=== PATIENT | female | born 1980 | race Two or more races ===

== ENCOUNTER → 2016-08-28 | Outpatient (REF) | payer OTHER ==
[2016-08-28 13:58] LABS: MEAN CORPUSCULAR HEMOGLOBIN 30.4 pg (27.0-33.0); MEAN CORPUSCULAR HGB CONC 34.5 g/dl (32.0-36.5); MEAN CORPUSCULAR VOLUME 88.2 fl (80.0-96.0); RED CELL DISTRIBUTION WIDTH 13.1 % (11.5-14.5); WHITE BLOOD COUNT 5.6 K/mm3 (4.0-10.0)
[2016-08-28 14:11] LABS: LUTEINIZING HORMONE 7.3 mIU/mL
[2016-08-28 14:12] LABS: FOLLICLE STIMULATING HORMONE 3.6 mIU/mL
[2016-08-28 14:14] LABS: ALBUMIN 4.2 GM/DL (3.2-5.2); ALBUMIN/GLOBULIN RATIO 1.35 (1.00-1.93); ALKALINE PHOSPHATASE 66 U/L (45-117); ALT/SGPT 19 U/L (12-78); ANION GAP 10 MEQ/L (8-16); AST/SGOT 16 U/L (15-37); BILIRUBIN,TOTAL 0.4 MG/DL (0.2-1.0); BLOOD UREA NITROGEN 8 MG/DL (7-18); CALCIUM LEVEL 9.3 MG/DL (8.5-10.1); CARBON DIOXIDE LEVEL 26 MEQ/L (21-32); CHLORIDE LEVEL 105 MEQ/L (98-107); CREATININE FOR GFR 0.73 MG/DL (0.55-1.02); FREE T4 1.69 NG/DL (0.76-1.46); GLOMERULAR FILTRATION RATE > 60.0 (>60); GLUCOSE, FASTING 85 MG/DL (70-105); POTASSIUM SERUM 4.3 MEQ/L (3.5-5.1); SODIUM LEVEL 141 MEQ/L (136-145); TOTAL PROTEIN 7.3 GM/DL (6.4-8.2)
== END ==
LOC: M SFHCPLAZ 10:53
PROVIDERS: ATTEND Nurse Practitioner Family
DX: J45.909 Unspecified asthma, uncomplicated (principal); E28.2 Polycystic ovarian syndrome

== ENCOUNTER → 2016-10-03 | Outpatient (CLI) | payer OTHER ==
--- NOTE | 2016-10-03 13:59 | REP ---
THYROID ULTRASOUND: Real-time sonographic evaluation of the thyroid is performed. Both lobes are normal in size and echotexture, right lobe measuring 4.9 x 1.4 x 1.9 cm and the left lobe 4.9 x 1.3 x 1.9 cm. There is no cystic or solid nodule bilaterally. IMPRESSION: Normal appearing thyroid. Signed by Wilmer Hui MD 10/03/2016 05:39 P
== END ==
LOC: M RAD 12:34
PROVIDERS: ATTEND Nurse Practitioner Family
DX: R79.9 Abnormal finding of blood chemistry, unspecified (principal)

== ENCOUNTER → 2016-10-15 | Outpatient (REF) | payer OTHER ==
[2016-10-15 18:51] LABS: T UPTAKE 32 % (30-39); THYROXINE (T4) 9.4 UG/DL (4.5-12.0)
[2016-10-15 18:59] LABS: THYROID PEROXIDASE ANTIBODY < 28.0 U/ML (<60.0)
== END ==
LOC: M SFHCPLAZ 15:06
PROVIDERS: ATTEND Nurse Practitioner Family
DX: R79.9 Abnormal finding of blood chemistry, unspecified (principal)

== ENCOUNTER → 2017-02-26 | Outpatient (REF) | payer OTHER ==
[2017-02-26 11:03] LABS: EOS # 0.4 K/mm3 (0.0-0.50); EOS % 9.5 % (0.0-3.0); LARGE UNSTAINED CELL # 0.1 K/mm3 (0.0-0.4); LARGE UNSTAINED CELL % 1.2 % (0.0-4.0); LYMPH # 1.6 K/mm3 (1.5-4.5); LYMPH % 33.4 % (24.0-44.0); MEAN CORPUSCULAR HEMOGLOBIN 30.2 pg (27.0-33.0); MEAN CORPUSCULAR HGB CONC 34.7 g/dl (32.0-36.5); MEAN CORPUSCULAR VOLUME 87.1 fl (80.0-96.0); MONO # 0.2 K/mm3 (0.0-0.8); MONO % 4.9 % (0.0-5.0); NEUTROPHILS # 2.3 K/mm3 (1.8-7.7); PLATELET COUNT, AUTOMATED 269 k/mm3 (150-450); RED CELL DISTRIBUTION WIDTH 13.1 % (11.5-14.5); WHITE BLOOD COUNT 4.6 K/mm3 (4.0-10.0)
[2017-02-26 11:21] LABS: FREE T4 1.42 NG/DL (0.76-1.46)
== END ==
LOC: M SFHCPLAZ 08:27
PROVIDERS: ATTEND Nurse Practitioner Family
DX: J45.909 Unspecified asthma, uncomplicated (principal); F41.0 Panic disorder [episodic paroxysmal anxiety]; F43.10 Post-traumatic stress disorder, unspecified; R68.3 Clubbing of fingers; E28.2 Polycystic ovarian syndrome

== ENCOUNTER → 2017-04-05 | Outpatient (CLI) | payer OTHER ==
[~2017-04-05] MED LIST: GASTROGRAFIN SOLUTION 30ML (Q9963) As Ordered ONE; ISOVUE-370 76% 100ML VIAL (Q9967) As Ordered ONE
--- NOTE | 2017-04-05 12:30 | REP ---
CT of the abdomen pelvis with IV and oral contrast: Comparison is the pelvic ultrasound dated 04/03/2017. The visualized lung granda are unremarkable. There is an enhancing 3.8 cm lesion in the right lobe of the liver. I would recommend MRI follow-up to evaluate for hepatic mass. The liver is otherwise unremarkable. The gallbladder, pancreas and spleen are normal size and unremarkable. The adrenals and kidneys are unremarkable. There are no renal calculi. There is no hydronephrosis. The abdominal aorta is unremarkable. There is no bowel distension. The mesentery is unremarkable. Pelvis: The appendix has a normal appearance. There is no ascites or adenopathy. The bladder, uterus and adnexa are unremarkable. The pelvic bowel loops are unremarkable. Impression: There is a 3.8 centimeter enhancing lesion in the right lobe of the liver. I would recommend MRI follow-up to evaluate for an hepatic mass. Otherwise negative CT of the abdomen and pelvis. There is no CT evidence of appendicitis. Signed by Wilmer Wylie MD 04/05/2017 12:22 P
== END ==
LOC: M RAD 10:27
PROVIDERS: ATTEND Nurse Practitioner Family
DX: R10.31 Right lower quadrant pain (principal); K76.89 Other specified diseases of liver
CPT/HCPCS: 74177; Q9963; Q9967

== ENCOUNTER → 2017-04-05 | Outpatient (REF) | payer OTHER ==
[2017-04-05 12:35] LABS: BASO % 0.6 % (0.0-1.0); EOS # 0.4 10^3/uL (0.0-0.50); EOS % 8.5 % (0.0-3.0); IMMATURE GRANULOCYTE % 0.4 % (0-0); LYMPH # 1.4 10^3/uL (1.5-4.5); LYMPH % 30.3 % (24.0-44.0); MEAN CORPUSCULAR HEMOGLOBIN 29.7 pg (27.0-33.0); MEAN CORPUSCULAR HGB CONC 33.2 g/dl (32.0-36.5); MEAN CORPUSCULAR VOLUME 89.5 fl (80.0-96.0); MONO # 0.3 10^3/uL (0.0-0.8); MONO % 7.3 % (0.0-5.0); NEUTROPHILS # 2.5 10^3/uL (1.8-7.7); NEUTROPHILS % 52.9 % (36.0-66.0); PLATELET COUNT, AUTOMATED 251 10^3/uL (150-450); RED CELL DISTRIBUTION WIDTH 13.2 % (11.5-14.5); WHITE BLOOD COUNT 4.7 10^3/uL (4.0-10.0)
[2017-04-05 13:05] LABS: ALBUMIN/GLOBULIN RATIO 1.33 (1.00-1.93); ALKALINE PHOSPHATASE 59 U/L (45-117); ALT/SGPT 21 U/L (12-78); ANION GAP 8 MEQ/L (8-16); AST/SGOT 13 U/L (15-37); BILIRUBIN,TOTAL 0.2 MG/DL (0.2-1.0); BLOOD UREA NITROGEN 16 MG/DL (7-18); CALCIUM LEVEL 8.8 MG/DL (8.5-10.1); CARBON DIOXIDE LEVEL 27 MEQ/L (21-32); CHLORIDE LEVEL 104 MEQ/L (98-107); CREATININE FOR GFR 0.71 MG/DL (0.55-1.02); GLOMERULAR FILTRATION RATE > 60.0 (>60); GLUCOSE, FASTING 83 MG/DL (70-105); POTASSIUM SERUM 4.3 MEQ/L (3.5-5.1); SODIUM LEVEL 139 MEQ/L (136-145)
== END ==
LOC: M SFHCPLAZ 09:03
PROVIDERS: ATTEND Nurse Practitioner Family
DX: R10.31 Right lower quadrant pain (principal)

== ENCOUNTER → 2017-04-12 | Outpatient (CLI) | payer OTHER ==
--- NOTE | 2017-04-12 13:28 | REP ---
MRI abdomen and liver without and with IV gadolinium: History: 3.8 cm enhancing right lobe hepatic lesion seen on CT study April 05, 2017. Right lower quadrant pain. Gadolinium enhancement dose: 14 ml of intravenous ProHance. Technique: Axial and coronal T1 and T2-weighted scans were obtained with sequences including true phase, spin echo, in and out of phase, and 2-D gradient echo dynamically acquired post gadolinium enhanced images. Findings: The known lesion in the right lobe of the liver is seen by MRI. It is only subtly hyperintense on coronal true FISP T2-weighted scans. It is essentially isointense on other T2-weighted sequences. A subtle pattern of hypointense signal is seen on T1-weighted sequences. In- and out of phase images show no suggestion of intralesional fat. No other hepatic lesion is seen. On dynamically acquired post gadolinium enhanced images, the lesion enhances conspicuously on the arterial phase images. Its margins are slightly lobular. It does not appear encapsulated. It measures 3.5 cm in greatest diameter. It quickly washes out and is barely perceptible by 3 minutes post contrast. There is no evidence of central scar. There are nonenhancing internal septations within it. No other abnormal enhancement is seen. No splenic, adrenal or renal lesion is seen. The gallbladder and pancreas are unremarkable. No upper abdominal adenopathy is seen. There is no evidence of ascitic fluid. Impression: Solitary 3.5 cm anterior segment right lobe hepatic hypervascular lesion demonstrating washout. The lesion is felt to be most compatible with hepatic adenoma. If follow-up is desired, comparison MRI study is suggested in 6-12 months. Signed by Sarabjit Sharma MD 04/12/2017 03:14 P
== END ==
LOC: M PLARAD 08:40
PROVIDERS: ATTEND Nurse Practitioner Family
DX: R10.31 Right lower quadrant pain (principal); K76.89 Other specified diseases of liver
CPT/HCPCS: 74183; A9576

== ENCOUNTER → 2018-04-16 | Outpatient (CLI) | payer MEDICAID | LOC: M WUC 13:59 | DX: R05 Cough (principal) | CPT/HCPCS: 71046 ==

== ENCOUNTER 2018-07-06 14:51 | Emergency (ER) | payer OTHER ==
[~2018-07-06] VITALS: Ht 154.9 cm; Wt 75.0 kg
[2018-07-06] MEDS ORDERED: ACETAMINOPHEN TAB 650MG DOSE (2X325MG) PO ONE (15:30)
[2018-07-06 15:31] LABS: BASO % 0.5 % (0.0-1.0); EOS # 0.2 10^3/uL (0.0-0.50); HEMATOCRIT 40.5 % (36.0-47.0); HEMOGLOBIN 13.9 g/dl (12.0-15.5); LYMPH # 2.1 10^3/uL (1.5-4.5); LYMPH % 34.2 % (24.0-44.0); MEAN CORPUSCULAR HEMOGLOBIN 30.1 pg (27.0-33.0); MEAN CORPUSCULAR HGB CONC 34.3 g/dl (32.0-36.5); MEAN CORPUSCULAR VOLUME 87.7 fl (80.0-96.0); MONO # 0.3 10^3/uL (0.0-0.8); MONO % 5.5 % (0.0-5.0); NEUTROPHILS # 3.4 10^3/uL (1.8-7.7); NEUTROPHILS % 56.5 % (36.0-66.0); PLATELET COUNT, AUTOMATED 307 10^3/uL (150-450); RED BLOOD COUNT 4.62 10^6/uL (4.00-5.40)
[2018-07-06 15:38] LABS: INR 0.9; PROTHROMBIN TIME 12.3 SECONDS (12.1-14.4)
[2018-07-06 15:39] LABS: PARTIAL THROMBOPLASTIN TIME 25.8 SECONDS (25.4-37.6)
[2018-07-06 15:46] LABS: ALBUMIN 4.3 GM/DL (3.2-5.2); ALT/SGPT 20 U/L (12-78); AMYLASE 45 U/L (25-115); BILIRUBIN,DIRECT 0.1 MG/DL (0.0-0.2); BILIRUBIN,TOTAL 0.4 MG/DL (0.2-1.0); BLOOD UREA NITROGEN 9 MG/DL (7-18); CALCIUM LEVEL 9.5 MG/DL (8.5-10.1); CARBON DIOXIDE LEVEL 23 MEQ/L (21-32); CHLORIDE LEVEL 105 MEQ/L (98-107); CPK CREATINE PHOSPHOKINASE 132 U/L (26-192); CREATININE FOR GFR 0.86 MG/DL (0.55-1.30); ETHYL ALCOHOL (ETHANOL) < 0.003 % (0.000-0.010); GLOMERULAR FILTRATION RATE > 60.0 (>60); GLUCOSE, FASTING 94 MG/DL (70-100); LIPASE 81 U/L (73-393); MB/CK RELATIVE INDEX 0.98 (< OR =4); POTASSIUM SERUM 3.8 MEQ/L (3.5-5.1); SODIUM LEVEL 139 MEQ/L (136-145); TOTAL PROTEIN 7.5 GM/DL (6.4-8.2); TROPONIN I < 0.02 NG/ML (< 0.10)
[2018-07-06 15:47] LABS: HCG, SERUM QUALITATIVE NEGATIVE (NEGATIVE)
[2018-07-06] MEDS ORDERED: ISOVUE-370 76% 100ML VIAL (Q9967) As Ordered ONE (15:50)
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
[2018-07-06 17:30] VITALS: BP 128/84
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
[2018-07-06] MEDS ORDERED: NAPR-885 PO (18:17)
--- NOTE | 2018-07-07 13:42 | ECGEPIP ---
Stationary ECG Study [facility] - ED Test Date: 2018-07-06 Pat Name: STANISLAV ARIAS Department: Room: - Gender: F Industrial Education Teacher: TC : 1980 Requested By: YORDY Duval Order Number: [id number] Reading MD: Mali Medina Measurements Intervals [place] Rate: 82 P: 50 TX: 132 QRS: 9 QRSD: 104 T: 8 QT: 368 QTc: 431 Interpretive Statements SINUS RHYTHM WITH SINUS ARRHYTHMIA NSTTW ABNORMALITY NO PRIOR FOR COMPARISON Electronically Signed On 07-07-2018 13:42:16 EST by Mali Medina
--- NOTE | 2018-07-08 08:50 | ED PDOC ---
Post-Departure Follow-Up [facility] faxed formal report of ct abd/p for fu Ariadna Hernandez MD Jul 08, 2018 08:50
== END 2018-07-06 18:55 | disposition home or self-care (01) ==
LOC: M ED 14:51
DX: S16.1XXA Strain of muscle, fascia and tendon at neck level, initial encounter (principal); S20.219A Contusion of unspecified front wall of thorax, initial encounter; V49.49XA Driver injured in collision with other motor vehicles in traffic accident, initial encounter; Y92.410 Unspecified street and highway as the place of occurrence of the external cause; F33.9 Major depressive disorder, recurrent, unspecified; F43.10 Post-traumatic stress disorder, unspecified; Z79.899 Other long term (current) drug therapy
CPT/HCPCS: 36415; 70450; 71045; 71260; 72125; 72128; 72131; 74177; 80048; 80076; 82150; 82550; 82553; 83605; 83690; 84484; 84703; 85025; 85610; 85730; 86850; 86900; 86901; 93005; 93041; 94760; 99285; G0480; Q9967

== ENCOUNTER → 2018-10-09 | Outpatient (CLI) | payer OTHER, MEDICAID ==
[~2018-10-09] MED LIST changes: -GASTROGRAFIN SOLUTION 30ML (Q9963) As Ordered ONE; -ISOVUE-370 76% 100ML VIAL (Q9967) As Ordered ONE; +NAPR-885 PO
[2018-10-09 11:07] LABS: BLOOD UREA NITROGEN 11 MG/DL (7-18); CREATININE FOR GFR 0.78 MG/DL (0.55-1.30); GLOMERULAR FILTRATION RATE > 60.0 (>60)
== END ==
LOC: M LAB 10:23
PROVIDERS: ATTEND Family Medicine
DX: G89.29 Other chronic pain (principal)

== ENCOUNTER → 2019-01-26 | Outpatient (CLI) | payer OTHER ==
[~2019-01-26] MED LIST changes: +PROHANCE 279.3MG/ML 15ML VIAL (A9576) As Ordered ONE
--- NOTE | 2019-01-26 17:12 | REP ---
Clinical: Follow-up liver lesion. Technique: Pre and postcontrast MRI of the abdomen using 15 ml intravenous ProHance gadolinium based contrast material. The examination consisted of multiple T1 and T2 weighted axial sequences along with multiple postcontrast axial sequences including arterial phase and multiple delayed phase images through 10 minutes post contrast administration along with coronal precontrast and postcontrast sequencing. Findings: 4 cm lesion within the anterior segment right lobe of the liver and 3.2 cm lesion within the caudate lobe demonstrate faint increased intensity on precontrast T2 sequences along with heterogeneous arterial enhancement and relatively quick washout with evidence for multiple internal septations and subtle lobular contour. In retrospect, both lesions are identified on prior MRI dated 04/12/2017 and only minimally increased in size. Findings are most compatible with hepatic adenomas. Spleen, pancreas, gallbladder, bilateral adrenal glands and kidneys appear essentially normal. No ascites. The enteric system is grossly unremarkable. Visualized abdominal aorta appears normal. Surrounding musculoskeletal structures are intact and unremarkable. Impression: 1. Two lesions within the liver are slightly increased in size when compared to prior examination and most compatible with hepatic adenomas. Electronically Signed by Kenrick Peralta MD 01/26/2019 05:03 P
== END ==
LOC: M RAD 14:52
PROVIDERS: ATTEND Family Medicine
DX: K76.9 Liver disease, unspecified (principal)
CPT/HCPCS: 74183; A9576

== ENCOUNTER → 2019-01-30 | Outpatient (REF) | payer OTHER ==
[~2019-01-30] MED LIST changes: -PROHANCE 279.3MG/ML 15ML VIAL (A9576) As Ordered ONE
[2019-01-30 16:06] LABS: BASO % 0.8 % (0.0-1.0); EOS # 0.2 10^3/uL (0.0-0.50); EOS % 4.2 % (0.0-3.0); HEMATOCRIT 41.1 % (36.0-47.0); LYMPH # 1.6 10^3/uL (1.5-4.5); LYMPH % 31.4 % (24.0-44.0); MEAN CORPUSCULAR HGB CONC 34.1 g/dl (32.0-36.5); MEAN CORPUSCULAR VOLUME 90.9 fl (80.0-96.0); MONO # 0.4 10^3/uL (0.0-0.8); MONO % 7.6 % (0.0-5.0); NEUTROPHILS # 2.8 10^3/uL (1.8-7.7); NEUTROPHILS % 55.6 % (36.0-66.0); PLATELET COUNT, AUTOMATED 265 10^3/uL (150-450); RED BLOOD COUNT 4.52 10^6/uL (4.00-5.40)
[2019-01-30 16:18] LABS: ALBUMIN 4.1 GM/DL (3.2-5.2); ALT/SGPT 22 U/L (12-78); BILIRUBIN,TOTAL 0.3 MG/DL (0.2-1.0); BLOOD UREA NITROGEN 11 MG/DL (7-18); CALCIUM LEVEL 9.4 MG/DL (8.5-10.1); CARBON DIOXIDE LEVEL 29 MEQ/L (21-32); CHLORIDE LEVEL 103 MEQ/L (98-107); CREATININE FOR GFR 0.78 MG/DL (0.55-1.30); GLOMERULAR FILTRATION RATE > 60.0 (>60); GLUCOSE, FASTING 85 MG/DL (70-100); POTASSIUM SERUM 4.4 MEQ/L (3.5-5.1); SODIUM LEVEL 140 MEQ/L (136-145); TOTAL PROTEIN 7.3 GM/DL (6.4-8.2)
== END ==
LOC: M SFHCPLAZ 13:52
PROVIDERS: ATTEND Family Medicine
DX: D13.4 Benign neoplasm of liver (principal)

== ENCOUNTER 2019-09-24 10:30 | Emergency (ER) | payer OTHER ==
[~2019-09-24] VITALS: Ht 154.9 cm; Wt 74.5 kg
[2019-09-24] MEDS ORDERED: ALL10TAB29 (10:44)
[2019-09-24] MEDS ORDERED: ALBU8.5H (10:44)
--- NOTE | 2019-09-24 11:06 | REP ---
Portable chest x-ray: Single view. History: Chest pain. Comparison chest x-ray: July 06, 2018. Findings: Monitoring electrodes are seen. The lungs are well inflated and clear. Pleural angles are sharp. Heart size is normal. No significant bony abnormality is seen. Impression: No active disease. Electronically Signed by Sarabjit Sharma MD 09/24/2019 10:58 A
[2019-09-24 11:16] LABS: BASO % 0.6 % (0.0-1.0); EOS # 0.2 10^3/uL (0.0-0.5); EOS % 4.3 % (0.0-3.0); HEMATOCRIT 40.9 % (36.0-47.0); HEMOGLOBIN 13.9 g/dl (12.0-15.5); LYMPH # 1.2 10^3/uL (1.5-5.0); LYMPH % 22.7 % (24.0-44.0); MEAN CORPUSCULAR HEMOGLOBIN 29.8 pg (27.0-33.0); MEAN CORPUSCULAR VOLUME 87.8 fl (80.0-96.0); MONO # 0.3 10^3/uL (0.0-0.8); MONO % 5.7 % (0.0-5.0); NEUTROPHILS # 3.6 10^3/uL (1.5-8.5); NEUTROPHILS % 66.5 % (36.0-66.0); PLATELET COUNT, AUTOMATED 242 10^3/uL (150-450); RED BLOOD COUNT 4.66 10^6/uL (4.00-5.40); WHITE BLOOD COUNT 5.4 10^3/uL (4.0-10.0)
[2019-09-24 11:54] LABS: ALT/SGPT 14 U/L (12-78); BILIRUBIN,DIRECT 0.1 MG/DL (0.0-0.2); BILIRUBIN,TOTAL 0.5 MG/DL (0.2-1.0); BLOOD UREA NITROGEN 12 MG/DL (7-18); CALCIUM LEVEL 8.9 MG/DL (8.5-10.1); CARBON DIOXIDE LEVEL 26 MEQ/L (21-32); CHLORIDE LEVEL 105 MEQ/L (98-107); CK-MB VALUE MASS < 1.0 NG/ML (<3.6); CPK CREATINE PHOSPHOKINASE 89 U/L (26-192); CREATININE FOR GFR 0.81 MG/DL (0.55-1.30); GLOMERULAR FILTRATION RATE > 60.0 (>60); GLUCOSE, FASTING 83 MG/DL (70-100); LIPASE 63 U/L (73-393); MB/CK RELATIVE INDEX 1.12 (< OR =4); NT-PRO BNP 32 PG/ML (<125); POTASSIUM SERUM 3.9 MEQ/L (3.5-5.1); SODIUM LEVEL 140 MEQ/L (136-145); TOTAL PROTEIN 7.3 GM/DL (6.4-8.2); TROPONIN I < 0.02 NG/ML (< 0.10)
[2019-09-24 14:30] VITALS: BP 107/70
[2019-09-24 14:32] LABS: CK-MB VALUE MASS < 1.0 NG/ML (<3.6); CPK CREATINE PHOSPHOKINASE 85 U/L (26-192); MB/CK RELATIVE INDEX 1.18 (< OR =4); TROPONIN I < 0.02 NG/ML (< 0.10)
--- NOTE | 2019-09-26 08:27 | ECGEPIP ---
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
--- NOTE | 2019-09-26 08:36 | ECGEPIP ---
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
== END 2019-09-24 14:59 | disposition home or self-care (01) ==
LOC: M ED 10:30
DX: R07.9 Chest pain, unspecified (principal); J45.909 Unspecified asthma, uncomplicated; N80.9 Endometriosis, unspecified; F41.9 Anxiety disorder, unspecified; F43.10 Post-traumatic stress disorder, unspecified; Z87.891 Personal history of nicotine dependence

== ENCOUNTER → 2020-08-26 | Outpatient (REF) | payer OTHER ==
[~2020-08-26] MED LIST changes: +ALBU8.5H; +CETI-24
[2020-08-26 14:26] LABS: HEMATOCRIT 42.8 % (36.0-47.0); HEMOGLOBIN 13.9 g/dl (12.0-15.5); MEAN CORPUSCULAR HEMOGLOBIN 29.8 pg (27.0-33.0); MEAN CORPUSCULAR HGB CONC 32.5 g/dl (32.0-36.5); MEAN CORPUSCULAR VOLUME 91.8 fl (80.0-96.0); PLATELET COUNT, AUTOMATED 260 10^3/uL (150-450); RED BLOOD COUNT 4.66 10^6/uL (4.00-5.40)
[2020-08-26 14:50] LABS: ALBUMIN 4.3 GM/DL (3.2-5.2); ALT/SGPT 25 U/L (12-78); BILIRUBIN,TOTAL 0.4 MG/DL (0.2-1.0); BLOOD UREA NITROGEN 13 MG/DL (7-18); CALCIUM LEVEL 9.5 MG/DL (8.5-10.1); CARBON DIOXIDE LEVEL 28 MEQ/L (21-32); CHLORIDE LEVEL 105 MEQ/L (98-107); CHOLESTEROL LEVEL 288 MG/DL (<200); CHOLESTEROL RISK RATIO 3.891 (<5); CREATININE FOR GFR 0.86 MG/DL (0.55-1.30); GLOMERULAR FILTRATION RATE > 60.0 (>58); GLUCOSE, FASTING 89 MG/DL (70-100); HDL CHOLESTEROL 74 MG/DL (>40); LDL CHOLESTEROL 192 MG/DL (<100); NON-HDL-C 214 MG/DL; POTASSIUM SERUM 4.4 MEQ/L (3.5-5.1); SODIUM LEVEL 138 MEQ/L (136-145); TOTAL PROTEIN 7.3 GM/DL (6.4-8.2); TRIGLYCERIDES LEVEL 110 MG/DL (<150)
== END ==
LOC: M PLALAB 11:00
PROVIDERS: ATTEND Family Medicine
DX: K62.5 Hemorrhage of anus and rectum (principal); K76.9 Liver disease, unspecified; Z13.220 Encounter for screening for lipoid disorders

== ENCOUNTER → 2020-12-27 | Outpatient (REF) | payer OTHER | LOC: M SFHCPLAZ 18:53 | PROVIDERS: ATTEND Family Medicine | DX: Z12.4 Encounter for screening for malignant neoplasm of cervix (principal); R87.610 Atypical squamous cells of undetermined significance on cytologic smear of cervix (ASC-US) ==

== ENCOUNTER → 2020-12-28 | Outpatient (CLI) | payer OTHER ==
[2020-12-28 10:50] LABS: HEMOGLOBIN 13.6 g/dl (12.0-15.5); MEAN CORPUSCULAR HEMOGLOBIN 29.2 pg (27.0-33.0); MEAN CORPUSCULAR HGB CONC 32.4 g/dl (32.0-36.5); MEAN CORPUSCULAR VOLUME 90.1 fl (80.0-96.0); PLATELET COUNT, AUTOMATED 252 10^3/uL (150-450); RED BLOOD COUNT 4.66 10^6/uL (4.00-5.40)
== END ==
LOC: M PLALAB 08:22
PROVIDERS: ATTEND Family Medicine
DX: Z12.4 Encounter for screening for malignant neoplasm of cervix (principal); N92.0 Excessive and frequent menstruation with regular cycle

== ENCOUNTER → 2021-01-19 | Outpatient (CLI) | payer OTHER | LOC: M WHC 10:59 | PROVIDERS: ATTEND Family Medicine | DX: N92.0 Excessive and frequent menstruation with regular cycle (principal); Z53.9 Procedure and treatment not carried out, unspecified reason ==

== ENCOUNTER → 2021-01-23 | Outpatient (CLI) | payer OTHER ==
--- NOTE | 2021-01-23 14:59 | REP ---
INDICATION: N62.0 MENORRHAGIA W/REGULAR CYCLE. COMPARISON: Comparison pelvic CT images July 06, 2018.. TECHNIQUE: Transabdominal and transvaginal scanning were performed. FINDINGS: Uterine dimensions are mildly enlarged at 10.6 x 3.3 x 4.7 cm. Endometrial echo is 0.6 cm thick and centrally placed. No free fluid is seen in the cul-de-sac. Visualized bladder silva are smooth. Nabothian cyst is seen in the cervix. The right ovary has dimensions of 2.5 x 2.3 x 2.6 cm. It's Doppler flow is normal with a resistive index of 0.48. The left ovary dimensions are normal as well at 2.5 x 2.2 x 2.5 cm. It's Doppler flow was normal with resistive index of 0.64. IMPRESSION: Mildly enlarged uterus, otherwise negative pelvic sonography. <Electronically signed by Brien Sharma > 01/23/21 [id number]
== END ==
LOC: M WHC 12:41
PROVIDERS: ATTEND Family Medicine
DX: N92.0 Excessive and frequent menstruation with regular cycle (principal); N64.4 Mastodynia; N88.8 Other specified noninflammatory disorders of cervix uteri
CPT/HCPCS: 76642; 76830; 76856; 77066; G0279

== ENCOUNTER → 2021-04-13 | Outpatient (CLI) | payer OTHER ==
[2021-04-13 13:47] LABS: CHOLESTEROL RISK RATIO 2.537 (<5)
== END ==
LOC: M PLALAB 09:11
PROVIDERS: ATTEND Family Medicine
DX: E78.00 Pure hypercholesterolemia, unspecified (principal)

== ENCOUNTER → 2021-06-15 | Outpatient (REF) | payer OTHER | LOC: M SFHCWAGY 13:20 | PROVIDERS: ATTEND Advanced Practice Midwife | DX: N92.1 Excessive and frequent menstruation with irregular cycle (principal) ==

== ENCOUNTER → 2021-07-03 | Outpatient (CLI) | payer OTHER ==
[2021-07-03 18:44] LABS: BLOOD UREA NITROGEN 15 MG/DL (7-18); CREATININE FOR GFR 0.87 MG/DL (0.55-1.30); GLOMERULAR FILTRATION RATE > 60.0 (>58)
== END ==
LOC: M PLALAB 15:10
PROVIDERS: ATTEND Nurse Practitioner Family
DX: K76.9 Liver disease, unspecified (principal)

== ENCOUNTER → 2021-07-26 | Outpatient (CLI) | payer OTHER ==
[~2021-07-26] MED LIST changes: +ARNU1INH; +ATOR1TAB21; +FAMO1TAB11; +MONT10TA97
== END ==
LOC: M LABSMTC 10:21
PROVIDERS: ATTEND Anesthesiology
DX: Z01.812 Encounter for preprocedural laboratory examination (principal); Z20.822 Contact with and (suspected) exposure to COVID-19

== ENCOUNTER 2021-07-31 11:03 | Day surgery (SDC) | payer OTHER ==
[~2021-07-31] VITALS: Ht 154.9 cm; Wt 75.7 kg
[~2021-07-31 11:03] MED LIST changes: +NS 1,000 ML IV ONE
[2021-07-31] MEDS ORDERED: propofoL 200 MG/20 ML VIAL As Ordered ONE ×2 (13:00→13:32)
[2021-07-31] MEDS ORDERED: LIDOCAINE 2% 100MG/5ML SDV (FOR ANES.) As Ordered ONE (13:00)
[2021-07-31] MEDS ORDERED: GLYCOPYRROLATE INJ 0.2 MG/ML 2 ML VIAL As Ordered ONE (13:00)
[2021-07-31] MEDS ORDERED: METOPROLOL 5 MG/5 ML VIAL As Ordered ONE (13:35)
[2021-07-31 14:19] VITALS: BP 130/85
== END 2021-07-31 14:21 | disposition home or self-care (01) ==
LOC: M OPP 11:03
PROVIDERS: ATTEND Internal Medicine Gastroenterology
DX: K92.1 Melena (principal); K64.8 Other hemorrhoids; R19.4 Change in bowel habit; K22.89 Other specified disease of esophagus; K71.8 Toxic liver disease with other disorders of liver; Z79.899 Other long term (current) drug therapy

== ENCOUNTER → 2021-11-30 | Outpatient (CLI) | payer OTHER ==
[~2021-11-30] MED LIST changes: -NS 1,000 ML IV ONE
[2021-11-30 10:44] LABS: CHOLESTEROL RISK RATIO 3.357 (<5)
== END ==
LOC: M PLALAB 08:28
PROVIDERS: ATTEND Family Medicine
DX: E78.00 Pure hypercholesterolemia, unspecified (principal)

== ENCOUNTER → 2021-12-13 | Outpatient (REF) | payer OTHER ==
[2021-12-13 13:46] LABS: APPEARANCE, URINE HAZY (CLEAR); BACTERIA, URINE AUTO 1+ (NEGATIVE); BILIRUBIN, URINE AUTO NEGATIVE (NEGATIVE); BLOOD, URINE BLOOD 2+ (NEGATIVE); COLOR, URINE YELLOW (YELLOW); GLUCOSE, URINE (UA) AUTO NEGATIVE (NEGATIVE); KETONE, URINE AUTO NEGATIVE (NEGATIVE); LEUKOCYTE ESTERASE, URINE AUTO NEGATIVE (NEGATIVE); MUCUS, URINE SMALL (NEGATIVE); NITRITE, URINE AUTO NEGATIVE (NEGATIVE); PROTEIN, URINE AUTO NEGATIVE (NEGATIVE); RBC, URINE AUTO 1 /HPF (0-3); SQUAMOUS EPITHELIAL CELL UR AU 6 /HPF (0-6); UROBILINOGEN, URINE AUTO 0.2 mg/dL (0.0-2.0); WBC, URINE AUTO 2 /HPF (0-3)
== END ==
LOC: M SFHCPLAZ 12:48
PROVIDERS: ATTEND Physician Assistant
DX: R30.0 Dysuria (principal)

== ENCOUNTER → 2022-02-07 | Outpatient (REF) | payer OTHER ==
[2022-02-07 15:00] LABS: APPEARANCE, URINE MANUAL CLEAR (CLEAR); COLOR, URINE MANUAL YELLOW (YELLOW); GLUCOSE, URINE (UA) MANUAL NEGATIVE (NEGATIVE); PH,URINE MAN 5.5 UNITS (5.0 - 7.0); PROTEIN, URINE MANUAL NEGATIVE (NEGATIVE)
[2022-02-07 15:01] LABS: BILIRUBIN, URINE MANUAL NEGATIVE (NEGATIVE); BLOOD URINE MANUAL POSITIVE (NEGATIVE); KETONE, URINE MANUAL NEGATIVE (NEGATIVE); LEUKOCYTE ESTERASE, URINE MAN NEGATIVE (NEGATIVE); NITRITE, URINE MANUAL NEGATIVE (NEGATIVE); UROBILINOGEN, URINE MANUAL NORMAL (NORMAL)
== END ==
LOC: M SFHCPLAZ 12:48
PROVIDERS: ATTEND Physician Assistant
DX: R35.0 Frequency of micturition (principal)

== ENCOUNTER → 2022-02-21 | Outpatient (CLI) | payer OTHER ==
[~2022-02-21] MED LIST changes: +ISOVUE-370 76% 100ML VIAL As Ordered ONE
== END ==
LOC: M RAD 07:41
PROVIDERS: ATTEND Physician Assistant
DX: R31.9 Hematuria, unspecified (principal); K76.89 Other specified diseases of liver; K42.9 Umbilical hernia without obstruction or gangrene; D17.5 Benign lipomatous neoplasm of intra-abdominal organs; K57.90 Diverticulosis of intestine, part unspecified, without perforation or abscess without bleeding
CPT/HCPCS: 74178; Q9967

== ENCOUNTER → 2023-02-07 | Outpatient (CLI) | payer OTHER ==
[~2023-02-07] MED LIST changes: -ISOVUE-370 76% 100ML VIAL As Ordered ONE
[2023-02-07 15:02] LABS: BASO % 0.6 % (0.0-1.0); EOS # 0.2 10^3/uL (0.0-0.5); EOS % 4.9 % (0.0-3.0); HEMATOCRIT 39.4 % (36.0-47.0); LYMPH # 1.2 10^3/uL (1.5-5.0); MEAN CORPUSCULAR HEMOGLOBIN 29.7 pg (27.0-33.0); MONO # 0.4 10^3/uL (0.0-0.8); MONO % 8.5 % (2.0-8.0); NEUTROPHILS # 2.8 10^3/uL (1.5-8.5); NEUTROPHILS % 59.6 % (36.0-66.0); PLATELET COUNT, AUTOMATED 257 10^3/uL (150-450); RED BLOOD COUNT 4.38 10^6/uL (4.00-5.40); WHITE BLOOD COUNT 4.7 10^3/uL (4.0-10.0)
[2023-02-07 15:07] LABS: HEMOGLOBIN A1c 4.8 % (4.0-6.0)
[2023-02-07 15:14] LABS: LIPASE 26 U/L (12-53)
[2023-02-07 15:16] LABS: FERRITIN 13.8 NG/ML (7.3-270.7); FREE T4 1.03 NG/DL (0.89-1.76)
[2023-02-07 15:17] LABS: ERYTHROCYTE SEDIMENTATION RATE 13 mm/hr (0-20); TOTAL IRON BINDING CAPACITY 363 UG/DL (250-425)
[2023-02-07 15:18] LABS: ALBUMIN 4.1 G/DL (3.2-5.2); ALKALINE PHOSPHATASE 70 U/L (46-116); ALT/SGPT 20 U/L (7.0-40); AST/SGOT 12 U/L (<34); BILIRUBIN,TOTAL 0.5 MG/DL (0.3-1.2); BLOOD UREA NITROGEN 13 MG/DL (9-23); CALCIUM LEVEL 8.8 MG/DL (8.5-10.1); CARBON DIOXIDE LEVEL 28 MMOL/L (20-31); CHLORIDE LEVEL 103 MMOL/L (98-107); CHOLESTEROL LEVEL 231 MG/DL (<200); CHOLESTEROL RISK RATIO 3.73 (<5); GLOMERULAR FILTRATION RATE > 60.0 (>58); GLUCOSE, FASTING 108 MG/DL (60-100); HDL CHOLESTEROL 61.8 MG/DL (>40); IRON (FE) 91 UG/DL (50-170); LDL CHOLESTEROL 128.6 MG/DL (<100); NON-HDL-C 169.2 MG/DL; PERCENT SATURATION 25.1 % (13.2-45.0); POTASSIUM SERUM 3.9 MMOL/L (3.5-5.1); SODIUM LEVEL 139 MMOL/L (136-145); TOTAL 25(OH) VITAMIN D 12.8 NG/ML (20.0-100.0); TOTAL PROTEIN 6.9 G/DL (5.7-8.2); TRIGLYCERIDES LEVEL 203 MG/DL (<150)
[2023-02-07 15:19] LABS: VITAMIN B12 LEVEL 405 PG/ML (211-911)
[2023-02-07 16:24] LABS: C REACTIVE PROTEIN QUANTITATIV < 0.40 MG/DL (<1.0)
== END ==
LOC: M PLALAB 11:36
PROVIDERS: ATTEND Physician Assistant
DX: R53.83 Other fatigue (principal); R63.5 Abnormal weight gain; E78.00 Pure hypercholesterolemia, unspecified; K52.9 Noninfective gastroenteritis and colitis, unspecified

== ENCOUNTER → 2023-04-17 | Outpatient (CLI) | payer OTHER | LOC: M WHC 13:17 | PROVIDERS: ATTEND Physician Assistant | DX: R93.89 Abnormal findings on diagnostic imaging of other specified body structures (principal); N92.1 Excessive and frequent menstruation with irregular cycle ==

== ENCOUNTER → 2023-05-15 | Outpatient (REF) | payer OTHER | LOC: M SFHCPLAZ 12:54 | PROVIDERS: ATTEND Physician Assistant | DX: R05.1 Acute cough (principal) ==

== ENCOUNTER → 2023-06-12 | Outpatient (CLI) | payer OTHER | LOC: M PLALAB 09:37 | PROVIDERS: ATTEND Advanced Practice Midwife | DX: N92.1 Excessive and frequent menstruation with irregular cycle (principal) ==

== ENCOUNTER → 2023-06-12 | Outpatient (CLI) | payer OTHER ==
[2023-06-12 13:30] LABS: BASO # 0.1 10^3/uL (0.0-0.2); BASO % 1.1 % (0.0-1.0); EOS # 0.4 10^3/uL (0.0-0.5); EOS % 8.6 % (0.0-3.0); LYMPH # 1.5 10^3/uL (1.5-5.0); LYMPH % 31.3 % (24.0-44.0); MEAN CORPUSCULAR HEMOGLOBIN 29.5 pg (27.0-33.0); MEAN CORPUSCULAR HGB CONC 32.6 g/dl (32.0-36.5); MEAN CORPUSCULAR VOLUME 90.7 fl (80.0-96.0); MONO # 0.3 10^3/uL (0.0-0.8); MONO % 7.1 % (2.0-8.0); NEUTROPHILS # 2.4 10^3/uL (1.5-8.5); NEUTROPHILS % 51.5 % (36.0-66.0); PLATELET COUNT, AUTOMATED 269 10^3/uL (150-450); RED BLOOD COUNT 4.74 10^6/uL (4.00-5.40); WHITE BLOOD COUNT 4.6 10^3/uL (4.0-10.0)
[2023-06-12 14:06] LABS: FREE T4 1.08 NG/DL (0.89-1.76); IRON (FE) 67 UG/DL (50-170)
[2023-06-12 14:07] LABS: FERRITIN 11.1 NG/ML (7.3-270.7)
[2023-06-12 14:08] LABS: ALBUMIN 4.1 G/DL (3.2-5.2); ALKALINE PHOSPHATASE 63 U/L (46-116); ALT/SGPT 23 U/L (7.0-40); AST/SGOT 17 U/L (<34); BILIRUBIN,TOTAL 0.4 MG/DL (0.3-1.2); BLOOD UREA NITROGEN 14 MG/DL (9-23); CALCIUM LEVEL 9.2 MG/DL (8.5-10.1); CARBON DIOXIDE LEVEL 26 MMOL/L (20-31); CHLORIDE LEVEL 106 MMOL/L (98-107); CREATININE FOR GFR 0.73 MG/DL (0.55-1.30); GLOMERULAR FILTRATION RATE > 60.0 (>58); GLUCOSE, FASTING 92 MG/DL (60-100); PERCENT SATURATION 17.9 % (13.2-45.0); SODIUM LEVEL 138 MMOL/L (136-145); TOTAL IRON BINDING CAPACITY 374 UG/DL (250-425); VITAMIN B12 LEVEL 627 PG/ML (211-911)
[2023-06-12 14:09] LABS: FOLATE 14.2 NG/ML (>5.4)
== END ==
LOC: M PLALAB 09:39
PROVIDERS: ATTEND Physician Assistant
DX: R53.83 Other fatigue (principal)

== ENCOUNTER 2023-07-01 16:09 | Emergency (ER) | payer OTHER ==
[~2023-07-01] VITALS: Ht 154.9 cm; Wt 78.5 kg
[2023-07-01] MEDS ORDERED: ROSU10TA6 PO (16:24)
[2023-07-01] MEDS ORDERED: NORE0.353 (16:24)
[2023-07-01 17:29] LABS: BASO % 0.4 % (0.0-1.0); EOS # 0.3 10^3/uL (0.0-0.5); EOS % 4.9 % (0.0-3.0); HEMATOCRIT 39.6 % (36.0-47.0); HEMOGLOBIN 13.5 g/dl (12.0-15.5); LYMPH % 17.8 % (24.0-44.0); MEAN CORPUSCULAR HGB CONC 34.1 g/dl (32.0-36.5); MONO # 0.3 10^3/uL (0.0-0.8); MONO % 5.4 % (2.0-8.0); NEUTROPHILS # 3.9 10^3/uL (1.5-8.5); NEUTROPHILS % 71.3 % (36.0-66.0); PLATELET COUNT, AUTOMATED 247 10^3/uL (150-450); WHITE BLOOD COUNT 5.5 10^3/uL (4.0-10.0)
[2023-07-01] MEDS ORDERED: LIDOCAINE W/EPINEPHRINE 1% 20ML VIAL INFIL ONE (18:10)
[2023-07-01] MEDS ORDERED: ONDANSETRON 4MG ORAL DISINTEGRATING TAB PO ONE (18:10)
[2023-07-01] MEDS ORDERED: DOXY-443 PO (18:43)
[2023-07-01] MEDS ORDERED: ONDA4TAB6 PO (18:43)
[2023-07-01 18:56] VITALS: BP 144/82; TEMP 98.5; O2SAT 99
== END 2023-07-01 18:55 | disposition home or self-care (01) ==
LOC: M ED 16:09
DX: U07.1 COVID-19 (principal); L02.212 Cutaneous abscess of back [any part, except buttock and flank]; J45.909 Unspecified asthma, uncomplicated; F10.10 Alcohol abuse, uncomplicated; Z79.52 Long term (current) use of systemic steroids; Z79.83 Long term (current) use of bisphosphonates; Z79.899 Other long term (current) drug therapy

== ENCOUNTER 2023-08-15 09:11 | Emergency (ER) | payer OTHER ==
[~2023-08-15] VITALS: Ht 154.9 cm; Wt 76.2 kg
[~2023-08-15 09:11] MED LIST changes: +DOXY-443 PO; +NORE0.353; +ONDA4TAB6 PO; +ROSU10TA6 PO
[2023-08-15] MEDS ORDERED: IBUP-1022 PO (11:14)
[2023-08-15] MEDS ORDERED: METH-1164 PO (11:14)
[2023-08-15] MEDS ORDERED: ONDA4TAB6 PO (11:14)
[2023-08-15] MEDS: ACETAMINOPHEN 325 MG TAB PO ONE (11:15)
[2023-08-15] MEDS: ONDANSETRON 4MG ORAL DISINTEGRATING TAB PO ONE (11:15)
[2023-08-15 11:24] VITALS: BP 132/82; TEMP 97.7; O2SAT 98
== END 2023-08-15 11:31 | disposition home or self-care (01) ==
LOC: M ED 09:11
DX: S06.0X0A Concussion without loss of consciousness, initial encounter (principal); S50.812A Abrasion of left forearm, initial encounter; S13.4XXA Sprain of ligaments of cervical spine, initial encounter; W10.8XXA Fall (on) (from) other stairs and steps, initial encounter; E28.2 Polycystic ovarian syndrome; J45.909 Unspecified asthma, uncomplicated; K21.9 Gastro-esophageal reflux disease without esophagitis; Y92.009 Unspecified place in unspecified non-institutional (private) residence as the place of occurrence of the external cause; Y93.89 Activity, other specified; Y99.9 Unspecified external cause status; Z79.52 Long term (current) use of systemic steroids; Z79.83 Long term (current) use of bisphosphonates; Z79.899 Other long term (current) drug therapy

== ENCOUNTER → 2023-10-22 | Outpatient (CLI) | payer OTHER ==
[~2023-10-22] MED LIST changes: +IBUP-1022 PO; +METH-1164 PO
== END ==
LOC: M PLAIMG 09:17
PROVIDERS: ATTEND Physician Assistant
DX: J32.8 Other chronic sinusitis (principal); J34.2 Deviated nasal septum

== ENCOUNTER → 2024-05-24 | Outpatient (REF) | payer OTHER ==
[~2024-05-24] MED LIST changes: +DOXY-441 PO; -DOXY-443 PO; +ONDA-282 PO; -ONDA4TAB6 PO; -ROSU10TA6 PO; +ROSU10TA61 PO
[2024-05-24 17:32] LABS: HEMATOCRIT 39.6 % (36.0-47.0); HEMOGLOBIN 13.3 g/dl (12.0-15.5); MEAN CORPUSCULAR HEMOGLOBIN 29.7 pg (27.0-33.0); MEAN CORPUSCULAR HGB CONC 33.6 g/dl (32.0-36.5); MEAN CORPUSCULAR VOLUME 88.4 fl (80.0-96.0); PLATELET COUNT, AUTOMATED 278 10^3/uL (150-450); RED BLOOD COUNT 4.48 10^6/uL (4.00-5.40); WHITE BLOOD COUNT 5.5 10^3/uL (4.0-10.0)
[2024-05-24 17:58] LABS: ALKALINE PHOSPHATASE 70 U/L (35-104); ALT/SGPT 18 U/L (7.0-40); AST/SGOT 12 U/L (<34); BILIRUBIN,TOTAL 0.3 MG/DL (0.3-1.2); BLOOD UREA NITROGEN 13 MG/DL (9-23); CALCIUM LEVEL 9.5 MG/DL (8.5-10.1); CARBON DIOXIDE LEVEL 27 MMOL/L (20-31); CHLORIDE LEVEL 106 MMOL/L (98-107); CREATININE FOR GFR 0.75 MG/DL (0.55-1.30); GLOMERULAR FILTRATION RATE > 60.0 (>58); GLUCOSE, FASTING 119 MG/DL (60-100); SODIUM LEVEL 140 MMOL/L (136-145); TOTAL PROTEIN 7.6 G/DL (5.7-8.2)
== END ==
LOC: M LAB REF 17:16
PROVIDERS: ATTEND Registered Nurse
DX: R07.81 Pleurodynia (principal)

== ENCOUNTER → 2024-05-24 | Outpatient (REF) | payer OTHER | LOC: M LAB REF 16:57 | PROVIDERS: ATTEND Internal Medicine | DX: R07.81 Pleurodynia (principal) ==